=== PATIENT | female | born 1995 | race Hispanic/Latino ===

== ENCOUNTER 2016-10-13 07:02 | Inpatient (IN) | payer MEDICAID ==
[2016-10-13 07:36] VITALS: BMI 21.6
[2016-10-13] MEDS ORDERED: Morphine 4 mg/ml ISec IVP STA (07:47)
--- NOTE | 2016-10-13 07:56 | ED PDOC ---
Arrival/HPI - General Chief Complaint: Psychiatric Evaluation Time Seen by Provider: 10/13/16 07:35 Historian: Patient - History of Present Illness Narrative History of Present Illness (Text): 10/13/16 07:29 A 20 year old female, whose past medical history includes anxiety/depression, presents to the emergency department, accompanied by mother, complaining of feeling anxious and depressed. Patient reports she got into an argument with a friend and earlier today while talking to her mom she said "I feel like killing my self." Patient states she is afraid her friend is going to try to get her fired from work and is scared. Mother says she does not believe the child is going to hurt herself and it is just a situational statement. Patient denies any fever, chest pain, shortness of breath, or any other medical complaints at this time. Patient denies any suicidal plan, homicidal ideation or other complaints. PMD: None Therapist: Junior Andre Time/Duration: Prior to Arrival Symptom Onset: Sudden Symptom Course: Unchanged Quality: Other Activities at Onset: Rest Context: Home Past Medical History - Provider Review Nursing Documentation Reviewed: Yes - Tetanus Immunization Tetanus Immunization: Unknown - Cardiac Hx Cardiac Disorders: No - Pulmonary Hx Respiratory Disorders: No - Neurological Hx Neurological Disorder: No - HEENT Hx HEENT Disorder: No - Renal Hx Renal Disorder: No - Endocrine/Metabolic Hx Endocrine Disorders: No - Hematological/Oncological Hx Blood Disorders: No - Integumentary Hx Dermatological Disorder: No - Musculoskeletal/Rheumatological Hx Musculoskeletal Disorders: No - Gastrointestinal Hx Gastrointestinal Disorders: No - Genitourinary/Gynecological Hx Genitourinary Disorders: No - Psychiatric Hx Psychophysiologic Disorder: Yes Hx Anxiety: Yes Hx Depression: No Hx Emotional Abuse: No Hx Physical Abuse: No Hx Substance Use: No - Suicidal Assessment Feels Threatened In Home Enviroment: No Family/Social History - Physician Review Nursing Documentation Reviewed: Yes Family/Social History: Unknown Family HX Smoking Status: Never Smoked Hx Alcohol Use: No Hx Substance Use: No Hx Substance Use Treatment: No Allergies/Home Meds Allergies/Adverse Reactions: Allergies Iodine and Iodide Containing Produc Allergy (Verified 10/13/16 07:43) ANGIOEDEMA oyster Allergy (Uncoded 10/13/16 07:43) RASH Home Medications: Home Meds Medication Instructions Recorded Confirmed No Known Home Med 10/13/16 10/13/16 Review of Systems - Physician Review All systems were reviewed & negative as marked: Yes - Review of Systems Constitutional: absent: Fevers Respiratory: absent: SOB Cardiovascular: absent: Chest Pain Psychiatric: Anxiety, Depression, Suicidal Ideation. absent: Other (suicidal plan or homcidal ideation) Physical Exam Vital Signs Reviewed: Yes Vital Signs Temp Pulse Resp BP Pulse Ox 10/13/16 11:18 74 18 125/68 100 10/13/16 07:36 98.2 F 62 18 125/76 98 Temperature: Afebrile Blood Pressure: Normal Pulse: Regular Respiratory Rate: Normal Appearance: Positive for: Well-Appearing, Non-Toxic, Comfortable Pain Distress: None Mental Status: Positive for: Alert and Oriented X 3 - Systems Exam Head: Present: Atraumatic, Normocephalic Pupils: Present: PERRL Extroacular Muscles: Present: EOMI Conjunctiva: Present: Normal Mouth: Present: Moist Mucous Membranes Neck: Present: Normal Range of Motion Respiratory/Chest: Present: Clear to Auscultation, Good Air Exchange. No: Respiratory Distress, Accessory Muscle Use Cardiovascular: Present: Regular Rate and Rhythm, Normal S1, S2. No: Murmurs Abdomen: Present: Normal Bowel Sounds. No: Tenderness, Distention, Peritoneal Signs Back: Present: Normal Inspection Upper Extremity: Present: Normal Inspection. No: Cyanosis, Edema Lower Extremity: Present: Normal Inspection. No: Edema Neurological: Present: GCS=15, CN II-XII Intact, Speech Normal Skin: Present: Warm, Dry, Normal Color. No: Rashes Psychiatric: Present: Alert, Oriented x 3, Normal Insight, Normal Concentration Medical Decision Making ED Course and Treatment: 10/13/16 07:39 Impression: A 20 year old female with a suicidal thought, anxiousness and depression. Differential Diagnosis include but are not limited to: anxiety/depression Plan: -- EKG -- Labs -- Urinalysis -- Reassess and disposition Progress Notes: PES called. 10/13/16 08:12 Patient medical cleared for PES evaluation. 10/13/16 10:16 PES worker came to evaluate the patient, who spoke with Dr. Pearce. Dr. Pearce agrees with the plan to admit the patient to behavioral health for depression. Results and plans discussed with the patient and patient's mother, who expressed understanding. Patient and mother given the opportunity to ask question, all questions were answered and there is agreement with the plan to be admitted to the hospital. - Lab Interpretations Lab Results: 10/13/16 07:45 10/13/16 07:45 Lab Results 10/13/16 09:15: Urine Opiates Screen Negative, Urine Methadone Screen Negative, Ur Barbiturates Screen Negative, Ur Phencyclidine Scrn Negative, Ur Amphetamines Screen Negative, U Benzodiazepines Scrn Negative, U Oth Cocaine Metabols Negative, U Cannabinoids Screen Negative 10/13/16 09:15: Urine Color Yellow, Urine Appearance Clear, Urine pH 6.0, Ur Specific [place] >= 1.030, Urine Protein Trace H, Urine Glucose (UA) Negative, Urine Ketones Negative, Urine Blood Negative, Urine Nitrate Negative, Urine Bilirubin Small H, Urine Urobilinogen 0.2, Ur Leukocyte Esterase Negative, Urine RBC Negative, Urine WBC 0 - 2, Ur Epithelial Cells 1 - 3, Urine Bacteria Trace 10/13/16 07:45: Alcohol, Quantitative < 10 10/13/16 07:45: Salicylates < 1 L, Acetaminophen < 10.0 L 10/13/16 07:45: Sodium 143, Potassium 3.8, Chloride 103, Carbon Dioxide 26, Anion Gap 18, BUN 19, Creatinine 0.7, Est GFR ( Amer) > 60, Est GFR (Non- Af Amer) > 60, Random Glucose 87, Calcium 9.9, Total Bilirubin 1.0, AST 21, ALT 37, Alkaline Phosphatase 50, Total Protein 8.7 H, Albumin 4.7, Globulin 3.9, Albumin/Globulin Ratio 1.2 10/13/16 07:45: WBC 5.8, RBC 4.46, Hgb 12.9, Hct 38.1, MCV 85.4, MCH 28.9, MCHC 33.9, RDW 13.3, Plt Count 282, MPV 9.5, Gran % 58.5, Lymph % (Auto) 30.4, [place] % (Auto) 8.5 H, Eos % (Auto) 1.7, Baso % (Auto) 0.9, Gran # 3.39, Lymph # 1.8, [place] # 0.5, Eos # 0.1, Baso # 0.05 I have reviewed the lab results: Yes - Medication Orders Current Medication Orders: Fluoxetine HCl (Prozac) 10 mg PO DAILY ELVIRA Last Admin: 10/13/16 14:24 Dose: 10 mg Hydroxyzine Pamoate (Vistaril) 25 mg PO Q8 PRN; Protocol PRN Reason: Anxiety Zaleplon (Sonata) 5 mg PO HS PRN PRN Reason: Insomnia - Scribe Statement The provider has reviewed the documentation as recorded by the Saadiaibe Magy Benitez Provider Scribe Attestation: All medical record entries made by the Saadiaibandrew were at my direction and personally dictated by me. I have reviewed the chart and agree that the record accurately reflects my personal performance of the history, physical exam, medical decision making, and the department course for this patient. I have also personally directed, reviewed, and agree with the discharge instructions and disposition. Disposition/Present on Arrival - Present on Arrival Any Indicators Present on Arrival: No History of DVT/PE: No History of Uncontrolled Diabetes: No Urinary Catheter: No History of Decub. Ulcer: No History Surgical Site Infection Following: None - Disposition Have Diagnosis and Disposition been Completed?: Yes Diagnosis: Depression Disposition: HOSPITALIZED Disposition Time: 10:16 Patient Plan: Admission Condition: FAIR
[2016-10-13 08:05] LABS: ADD MANUAL DIFF? NO
[2016-10-13 08:11] LABS: BASO # 0.05 [, K/mm3] (0.0-2.0); BASO % 0.9 % (0.0-3.0); EOS # 0.1 (0.0-0.7); EOS % 1.7 % (1.5-5.0); GRAN # 3.39 (1.4-6.5); GRAN % 58.5 % (50.0-68.0); HEMATOCRIT 38.1 % (36.0-48.0); LYMPH # 1.8 (1.2-3.4); LYMPH % 30.4 % (22.0-35.0); MEAN CELL VOLUME 85.4 fL (80.0-105.0); MEAN CORPUSCULAR HEMOGLOBIN 28.9 pg (25.0-35.0); MEAN CORPUSCULAR HGB CONC 33.9 g/dl (31.0-37.0); MEAN PLATELET VOLUME 9.5 fl (7.0-11.0); MONO # 0.5 (0.1-0.6); MONO % 8.5 % (1.0-6.0); PLATELET COUNT 282 [, 10^3/uL] (120.0-450.0); RED CELL DISTRIBUTION WIDTH 13.3 % (11.5-14.5); WHITE BLOOD COUNT 5.8 [, 10^3/ul] (4.5-11.0)
[2016-10-13 08:26] LABS: ALB/GLOB RATIO 1.2 (1.1-1.8); ALKALINE PHOSPHATASE 50 U/L (38-133); ALT/SGPT 37 U/L (7-56); AST/SGOT 21 U/L (15-39); BLOOD UREA NITROGEN 19 mg/dL (7-21); CALCIUM 9.9 mg/dL (8.4-10.5); CARBON DIOXIDE 26 mmol/L (21-33); CHLORIDE 103 mmol/L (98-107); GFR AFRICAN-AMERICAN > 60; GLUCOSE,RANDOM 87 mg/dL (70-110); POTASSIUM 3.8 mmol/L (3.6-5.0); SODIUM 143 mmol/L (132-148); TOTAL PROTEIN 8.7 g/dL (5.8-8.3)
[2016-10-13 09:34] LABS: URINE BILIRUBIN SMALL (NEGATIVE); URINE BLOOD NEGATIVE (NEGATIVE); URINE GLUCOSE (UA) NEGATIVE (NEGATIVE); URINE KETONE NEGATIVE (NEGATIVE); URINE LEUKOCYTE ESTERASE NEGATIVE Leu/uL (NEGATIVE); URINE PROTEIN TRACE mg/dL (<30 mg/dL); URINE UROBILINOGEN 0.2 E.U./dL (<1 E.U./dL)
[2016-10-13 09:35] LABS: URINE APPEARANCE CLEAR (CLEAR); URINE COLOR YELLOW (YELLOW)
[2016-10-13 09:48] LABS: URINE BACTERIA TRACE (NEG); URINE RBC NEGATIVE /hpf (0-2); URINE WBC 0 - 2 /hpf (0-6)
[2016-10-13 11:22] VITALS: O2SAT 100
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
[2016-10-13] MEDS ORDERED: Alum-Mag Hydrox-Simethicone Susp (30 mL) PO PRN (15:40)
[2016-10-13] MEDS ORDERED: Magnesium Hydroxide Susp 30 ml UD PO PRN (15:41)
[2016-10-14 08:00] LABS: CHOLESTEROL 135 mg/dL (130-200); GLUCOSE,FASTING 92 mg/dL (65-110)
[2016-10-14 08:13] LABS: FREE T4 1.19 ng/dL (0.78-2.19)
[2016-10-14 08:27] LABS: THYROID STIMULATING HORMONE 1.7 mIU/mL (0.46-4.68)
--- NOTE | 2016-10-14 12:59 | CON ---
DATE: 10/14/2016 HISTORY OF PRESENT ILLNESS: The patient is a 20-year-old sindy white girl who was brought in last t [place]. The patient states she was feeling very depressed and she had suicidal thoughts. She stated on e of her close friends blocked her from her social media where she thought she had some racial slurs against her and she also had some issues going on with another male coworker who passed some unfavora ble remarks on her that upset her really deeply and she became very depressed and thought she should kill herself, but actually did not have any plan to do it. So she told her mother who brought her to Emergency Room for help. 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 PAST MEDICAL HISTORY: She has a significant past medical history of depression only, otherwise she i s doing well. MEDICATIONS: She is not on any medicine at home. ALLERGIES: SHE IS ALLERGIC TO IODINE AND IODINE-CONTAINING PRODUCTS AND . SOCIAL HISTORY: She is single. Denies smoking or drinking. REVIEW OF SYSTEMS: Significant for feeling down, otherwise she has no other physical symptom. PHYSICAL EXAMINATION: GENERAL: She is awake and alert, communicative. VITAL SIGNS: She is afebrile, pulse 64, respirations 19, blood pressure 106/70. LUNGS: Bilateral good airflow, no rhonchi or crackle. HEART: S1, S2 audible. No murmur. ABDOMEN: Soft, nontender, no rebound, no guarding. NEUROLOGIC: She is awake and alert, communicative, ambulatory. LABORATORY DATA: WBC is 5.8, hemoglobin 12.9, hematocrit 38, platelet of 282. Chemistry: Sodium 14 3, potassium 3.8, chloride 103, CO2 26, BUN 19, creatinine 0.7, blood sugar of 87. LFTs are within n ormal limits. Thyroid within normal limits. Urinalysis is unremarkable. Urine drug screen is negative. ASSESSMENT: 1. Suicidal thoughts. 2. Occasional heartburn, but does not take any medicines. PLAN: The patient is medically stable. There is no further recommendation. Psych medication will b e adjusted by psychiatrist. Reginald Vargas MD cc: [id number] TT: 10/14/2016 12:58:48 Confirmation # [id number] Dictation # [id number] rn
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
--- NOTE | 2016-10-15 08:46 | PCM.PYCHPN ---
Psychiatric Progress Note - Psychiatric Progress Note Patient seen today, length of contact: 25 minutes Patient Chief Complaint: "I am definitely doing better" Problems Identified/Issues Discussed: I reviewed assessment and recent notes. Patient was interviewed at bedside. She remains calm, cooperative and well-oriented to circumstances. Reports that she is improving on the unit and has no complaints at this time. Depression persists however patient denies hopelessness or SI. Patient is feeling better and her affect is demonstrating good range and reactivity. She is tolerating medications and specifically denies any new discomfort or pain. She slept well last night without a prn. Her thought process is coherent and she isn't hallucinating. Delusions were not elicited. Nursing notes indicate that patient has been visible and cooperative on the unit. Appears depressed and anxious as well as a little isolative (though appears to be doing better this morning based on my interview). There were no behavioral issues overnight Diagnostic Results: MDD NICHOLE Medication Change: No ( ) Medical Record Reviewed: Yes (reports, labs, vitals, notes) Mental Status Examination - Cognitive Function Orientation: Person, Place, Situation, Time Memory: Intact Attention: Poor Concentration: Poor Association: WNL Fund of Knowledge: WNL - Mood Mood: Depressed ("I am definitely doing better"), Anxious - Affect Affect: Constricted (full range, reactive, pleasant) - Speech Speech: Appropriate - Formal Thought Process Formal Thought Process: No Impairment - Suicidal Ideation Suicidal Ideation: No - Homicidal Ideation Homicidal Ideation: No Goal/Treatment Plan - Goal/Treatment Plan Need for Continued Stay: Remain at risks for inpatient hospitalization, Severe depression anxiety, Discharge may exacerbated symptoms, Severe functional impairment Progress Toward Problem(s) and Goals/Treatment Plan: * c/w current tx and plan * No new weekend labs * Vitals reviewed and noted below: Selected Entries 10/14/16 10/14/16 06:35 16:18 Temperature 97.9 F Pulse Rate 64 68 Respiratory 19 Rate Blood Pressure 106/70 120/79 Estimated Date of D/C: 10/19/16 (will monitor closely)
[2016-10-15 08:48] LABS: FREE T4 1.11 ng/dL (0.78-2.19)
[2016-10-15 09:02] LABS: THYROID STIMULATING HORMONE 1.6 mIU/mL (0.46-4.68)
--- NOTE | 2016-10-16 09:30 | PCM.PYCHPN ---
Psychiatric Progress Note - Psychiatric Progress Note Patient seen today, length of contact: 25 minutes Patient Chief Complaint: "I am definitely doing better" Problems Identified/Issues Discussed: I reviewed recent notes and patient was interviewed at bedside. She remains calm, cooperative and well-oriented to circumstances. Reports that she is improving on the unit and has no complaints at this time. She continues to deny hopelessness or SI. Patient is feeling better and her affect is demonstrating good range and reactivity. She is tolerating medications and specifically denies any new discomfort or pain. She slept well last night without a prn. Her thought process is coherent and she isn't hallucinating. Delusions were not elicited. Nursing notes indicate that patient has been visible and cooperative on the unit There were no behavioral issues over the weekend. Diagnostic Results: MDD NICHOLE Medication Change: No ( ) Medical Record Reviewed: Yes (reports, labs, vitals, notes) Mental Status Examination - Cognitive Function Orientation: Person, Place, Situation, Time Memory: Intact Attention: Poor Concentration: Poor Association: WNL Fund of Knowledge: WNL - Mood Mood: Depressed ("I am definitely doing better"), Anxious - Affect Affect: Constricted (full range, reactive, pleasant) - Speech Speech: Appropriate - Formal Thought Process Formal Thought Process: No Impairment - Suicidal Ideation Suicidal Ideation: No - Homicidal Ideation Homicidal Ideation: No Goal/Treatment Plan - Goal/Treatment Plan Need for Continued Stay: Remain at risks for inpatient hospitalization, Severe depression anxiety, Discharge may exacerbated symptoms, Severe functional impairment Progress Toward Problem(s) and Goals/Treatment Plan: * c/w current tx and plan * Vitals reviewed and noted below: Selected Entries 10/15/16 10/16/16 06:42 07:42 Temperature 98.4 F 97.9 F Pulse Rate 58 L 59 L Respiratory 20 20 Rate Blood Pressure 102/58 L 109/69 * New weekend labs noted below: 10/15/16 08:16 Free T4 1.11 TSH 3rd Generation 1.60 Estimated Date of D/C: 10/19/16 (will monitor closely)
--- NOTE | 2016-10-17 12:59 | PN ---
DATE: 10/17/2016 The patient is a 20-year-old, seen and examined, sitting in dining room, seems to be much more alert, cooperative and participating. PHYSICAL EXAMINATION: VITAL SIGNS: She is afebrile, pulse 56, respirations 20, blood pressure 110/71. LUNGS: Bilateral good airflow, no rhonchi or crackle. HEART: S1, S2 audible. ABDOMEN: Soft, nontender, no rebound, no guarding. NEUROLOGIC: She is awake and alert, communicative, ambulatory. LABORATORY EXAMINATION: Her lipid profile is within normal limits. Thyroid profile is also within g ood range. ANCA is negative. ASSESSMENT: 1. Depression with suicidal thoughts. 2. Gastritis, intermittent. PLAN: The patient is clinically stable, no medical issue. Will sign off and follow up as needed. Reginald Vargas MD cc: [phone] TT: 10/17/2016 12:58:26 Confirmation # [id number] Dictation # [id number] en
--- NOTE | 2016-10-17 13:45 | PCM.PYCHPN ---
Psychiatric Progress Note - Psychiatric Progress Note Patient seen today, length of contact: 30 minutes Patient Chief Complaint: "I M doing little bit better, my mother is very supportive, I need to work on my self-esteem, I'm easily taken advantage from" Problems Identified/Issues Discussed: Suicide/ homicide prevention, past psychiatric h/o, current psychiatric symptoms , medical problems, risk/benefits and alternatives of medications, medications compliance, coping strategies, substance abuse h/o, relapse prevention, importance of follow up with psychiatrist and therapist, discharge plan. Medical Problems: patient does not have any major medical illnesses, was seen by medical team. Diagnostic Results: 10/13/16 07:45 10/13/16 07:45 Lab Results 10/14/16 07:00: Free T4 1.19, TSH 3rd Generation 1.70 10/14/16 07:00: Fasting Glucose 92, Triglycerides 71, Cholesterol 135, LDL Cholesterol Direct 76, HDL Cholesterol 42 10/13/16 11:00: Urine HCG, Qual Negative 10/13/16 09:15: Urine Opiates Screen Negative, Urine Methadone Screen Negative, Ur Barbiturates Screen Negative, Ur Phencyclidine Scrn Negative, Ur Amphetamines Screen Negative, U Benzodiazepines Scrn Negative, U Oth Cocaine Metabols Negative, U Cannabinoids Screen Negative 10/13/16 09:15: Urine Color Yellow, Urine Appearance Clear, Urine pH 6.0, Ur Specific [place] >= 1.030, Urine Protein Trace H, Urine Glucose (UA) Negative, Urine Ketones Negative, Urine Blood Negative, Urine Nitrate Negative, Urine Bilirubin Small H, Urine Urobilinogen 0.2, Ur Leukocyte Esterase Negative, Urine RBC Negative, Urine WBC 0 - 2, Ur Epithelial Cells 1 - 3, Urine Bacteria Trace 10/13/16 07:45: Alcohol, Quantitative < 10 10/13/16 07:45: Salicylates < 1 L, Acetaminophen < 10.0 L 10/13/16 07:45: Sodium 143, Potassium 3.8, Chloride 103, Carbon Dioxide 26, Anion Gap 18, BUN 19, Creatinine 0.7, Est GFR ( Amer) > 60, Est GFR (Non- Af Amer) > 60, Random Glucose 87, Calcium 9.9, Total Bilirubin 1.0, AST 21, ALT 37, Alkaline Phosphatase 50, Total Protein 8.7 H, Albumin 4.7, Globulin 3.9, Albumin/Globulin Ratio 1.2 10/13/16 07:45: WBC 5.8, RBC 4.46, Hgb 12.9, Hct 38.1, MCV 85.4, MCH 28.9, MCHC 33.9, RDW 13.3, Plt Count 282, MPV 9.5, Gran % 58.5, Lymph % (Auto) 30.4, [place] % (Auto) 8.5 H, Eos % (Auto) 1.7, Baso % (Auto) 0.9, Gran # 3.39, Lymph # 1.8, [place] # 0.5, Eos # 0.1, Baso # 0.05 Vital Signs Temp Pulse Resp BP Pulse Ox 10/14/16 06:35 97.9 F 64 19 106/70 10/13/16 17:33 80 20 123/84 10/13/16 11:18 74 18 125/68 100 10/13/16 07:36 98.2 F 62 18 125/76 98 Temp Pulse Resp BP Pulse Ox 97.9 F 56 L 20 110/71 100 10/17/16 07:34 10/17/16 07:34 10/17/16 07:34 10/17/16 07:34 10/13/16 11:18 DSM 5 Symptoms Update: Shortly patient is 20 years old female, with reported history of depression, anxiety, history of one psychiatric admission at age of 12 or 13 in [facility], history of suicidal attempts ( at the age of 13 patient tried to cut her wrist), patient was brought in by her mother for evaluation and stabilization of depressive symptoms, suicidal ideations, worsening of anxiety, inability to function, patient was noncompliant with the medications as well as follow-up appointments, patient needs further evaluation and stabilization, medication initiation and titration, medical attention. patient was seen today at the treatment meeting room, patient presented to have with ADLs, fear hygiene, appears to be anxious, but affect was more reactive, mood congruent.. atient reported over the weekend her mood was "little better" patient still feel anxious about going back to work, patient feels "easily intimidated", atient reported that her mother is very supportive, patient decided that she will go back to work and "I will not try to make friends with that two people, they are not good for me". 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 "I will be very formal with them, I will say "hello and good buy, I don't want to have any trouble with them". Patient denied hearing voices, denied seeing things, denied paranoid ideation, patient does not present to be psychotic Patient denied mind is racing, elevated mood, no manic symptoms were reported or elicited. emotional support and empathic listening provided. pt was Impression: MDD NICHOLE Medication Change: No ( ) Medical Record Reviewed: Yes (reports, labs, vitals, notes) Consults ordered or reviewed: medical consult appreciated Mental Status Examination - Cognitive Function Orientation: Person, Place, Situation, Time Memory: Intact Attention: Poor Concentration: Poor Association: WNL Fund of Knowledge: WNL - Mood Mood: Depressed ("I am definitely doing better"), Anxious - Affect Affect: Constricted (full range, reactive, pleasant) - Speech Speech: Appropriate - Formal Thought Process Formal Thought Process: No Impairment - Suicidal Ideation Suicidal Ideation: No - Homicidal Ideation Homicidal Ideation: No Goal/Treatment Plan - Goal/Treatment Plan Need for Continued Stay: Remain at risks for inpatient hospitalization, Severe depression anxiety, Discharge may exacerbated symptoms, Severe functional impairment Progress Toward Problem(s) and Goals/Treatment Plan: milieu, structure, supportive therapy Prozac will be increased to 30 mg daily for depression and anxiety Sonata 5 mg as needed for insomnia Vistaril 25 mg every 8 hours as needed for anxiety Collaterals from family Medical team evaluation ostrich farm worker evaluation We'll monitor closely. Estimated Date of D/C: 10/19/16 (will monitor closely)
[2016-10-18 06:53] VITALS: RESP 20
--- NOTE | 2016-10-18 15:37 | PCM.PYCHPN ---
Psychiatric Progress Note - Psychiatric Progress Note Patient seen today, length of contact: 30 minutes Patient Chief Complaint: "I am doing better, I will be able to face the stress..., I learned a lot from this admission". Problems Identified/Issues Discussed: Suicide/ homicide prevention, past psychiatric h/o, current psychiatric symptoms , medical problems, risk/benefits and alternatives of medications, medications compliance, coping strategies, substance abuse h/o, relapse prevention, importance of follow up with psychiatrist and therapist, discharge plan. Medical Problems: patient does not have any major medical illnesses, was seen by medical team. Diagnostic Results: 10/13/16 07:45 10/13/16 07:45 Lab Results 10/14/16 07:00: Free T4 1.19, TSH 3rd Generation 1.70 10/14/16 07:00: Fasting Glucose 92, Triglycerides 71, Cholesterol 135, LDL Cholesterol Direct 76, HDL Cholesterol 42 10/13/16 11:00: Urine HCG, Qual Negative 10/13/16 09:15: Urine Opiates Screen Negative, Urine Methadone Screen Negative, Ur Barbiturates Screen Negative, Ur Phencyclidine Scrn Negative, Ur Amphetamines Screen Negative, U Benzodiazepines Scrn Negative, U Oth Cocaine Metabols Negative, U Cannabinoids Screen Negative 10/13/16 09:15: Urine Color Yellow, Urine Appearance Clear, Urine pH 6.0, Ur Specific [place] >= 1.030, Urine Protein Trace H, Urine Glucose (UA) Negative, Urine Ketones Negative, Urine Blood Negative, Urine Nitrate Negative, Urine Bilirubin Small H, Urine Urobilinogen 0.2, Ur Leukocyte Esterase Negative, Urine RBC Negative, Urine WBC 0 - 2, Ur Epithelial Cells 1 - 3, Urine Bacteria Trace 10/13/16 07:45: Alcohol, Quantitative < 10 10/13/16 07:45: Salicylates < 1 L, Acetaminophen < 10.0 L 10/13/16 07:45: Sodium 143, Potassium 3.8, Chloride 103, Carbon Dioxide 26, Anion Gap 18, BUN 19, Creatinine 0.7, Est GFR ( Amer) > 60, Est GFR (Non- Af Amer) > 60, Random Glucose 87, Calcium 9.9, Total Bilirubin 1.0, AST 21, ALT 37, Alkaline Phosphatase 50, Total Protein 8.7 H, Albumin 4.7, Globulin 3.9, Albumin/Globulin Ratio 1.2 10/13/16 07:45: WBC 5.8, RBC 4.46, Hgb 12.9, Hct 38.1, MCV 85.4, MCH 28.9, MCHC 33.9, RDW 13.3, Plt Count 282, MPV 9.5, Gran % 58.5, Lymph % (Auto) 30.4, [place] % (Auto) 8.5 H, Eos % (Auto) 1.7, Baso % (Auto) 0.9, Gran # 3.39, Lymph # 1.8, [place] # 0.5, Eos # 0.1, Baso # 0.05 Vital Signs Temp Pulse Resp BP Pulse Ox 10/14/16 06:35 97.9 F 64 19 106/70 10/13/16 17:33 80 20 123/84 10/13/16 11:18 74 18 125/68 100 10/13/16 07:36 98.2 F 62 18 125/76 98 Temp Pulse Resp BP Pulse Ox 97.9 F 56 L 20 110/71 100 10/17/16 07:34 10/17/16 07:34 10/17/16 07:34 10/17/16 07:34 10/13/16 11:18 Temp Pulse Resp BP Pulse Ox 97.9 F 63 20 111/71 100 10/18/16 06:53 10/18/16 06:53 10/18/16 06:53 10/18/16 06:53 10/13/16 11:18 DSM 5 Symptoms Update: Shortly patient is 20 years old female, with reported history of depression, anxiety, history of one psychiatric admission at age of 12 or 13 in [facility], history of suicidal attempts ( at the age of 13 patient tried to cut her wrist), patient was brought in by her mother for evaluation and stabilization of depressive symptoms, suicidal ideations, worsening of anxiety, inability to function, patient was noncompliant with the medications as well as follow-up appointments, patient needs further evaluation and stabilization, medication initiation and titration, medical attention. patient was seen today at the TV room, patient presented to have with ADLs, fear hygiene, appears anxious, but said that she feels better, affect was more reactive, mood congruent.. patient tolerated medications well, no side effects observed or reported, patient reported that she is ready to be discharged tomorrow, patient has future oriented plans, patient wants to go back to work, was to go back to her school, patient said that she is ready to "face my problems", patient denied being depressed, denied thoughts of killing herself or others, patient also said "sometimes my mind is overreacting" referring to her statement at the time of admission that she wants to end up her life. Patient denied hearing voices, denied seeing things, denied paranoid ideation, patient does not present to be psychotic Patient denied mind is racing, elevated mood, no manic symptoms were reported or elicited. as per staff pt is visible in the unit, no behavioral problems. Impression: MDD NICHOLE Medication Change: Yes (increased yesterday) Medical Record Reviewed: Yes (reports, labs, vitals, notes) Consults ordered or reviewed: medical consult appreciated Mental Status Examination - Cognitive Function Orientation: Person, Place, Situation, Time Memory: Intact Attention: Poor (some improvement) Concentration: Poor (some improvement) Association: WNL Fund of Knowledge: WNL - Mood Mood: Depressed ("I am definitely doing better"), Anxious - Affect Affect: Constricted (full range, reactive, pleasant) - Speech Speech: Appropriate - Formal Thought Process Formal Thought Process: No Impairment - Suicidal Ideation Suicidal Ideation: No - Homicidal Ideation Homicidal Ideation: No Goal/Treatment Plan - Goal/Treatment Plan Need for Continued Stay: Remain at risks for inpatient hospitalization, Severe depression anxiety, Discharge may exacerbated symptoms, Severe functional impairment Progress Toward Problem(s) and Goals/Treatment Plan: milieu, structure, supportive therapy Prozac 30 mg daily for depression and anxiety Sonata 5 mg as needed for insomnia Vistaril 25 mg every 8 hours as needed for anxiety Collaterals from family Medical team evaluation acetone recovery worker evaluation We'll monitor closely. patient deemed to be ready for discharge tomorrow. Estimated Date of D/C: 10/19/16 (will monitor closely)
[2016-10-19 07:27] VITALS: BP 112/74; PULSE 68; TEMP 97.7
--- NOTE | 2016-10-19 11:29 | PCM.PYCHDC ---
Mental Status Examination - Mental Status Examination Orientation: Person, Place, Situation, Time Memory: Intact Mood: Neutral Affect: Broad (and mood congruent) Speech: Appropriate Attention: WNL Concentration: WNL Association: WNL Fund of Knowledge: WNL Formal Thought Process: No Impairment Description of patient's judgement and insight: Pt has improved insight into mental and medical illness, pt was compliant with medications and unit rules and regulations, pt was going to groups, was calm, cooperative, socially appropriate, no behavioral incidents, no agitation, no aggression. Psychotic Thoughts and Behaviors: Pt denied v/a/t hallucinations, denied paranoid ideations, pt does not appear to be psychotic, and thought process is goal directed. Suicidal Ideation: No Current Homicidal Ideation?: No Plan: pt adamantly denied thoughts of harming self or others denied intent or plan. Discharge Summary - Discharge Note Reason for Hospitalization: patient was admitted for evaluation and stabilization of depressive symptoms, inability to function, passive suicidal ideation, no intent or plan to kill herself. Psychiatric History (includes Medical, Family, Personal Hx): see HPI Laboratory Data: 10/13/16 07:45 10/13/16 07:45 Lab Results 10/15/16 08:16: Free T4 1.11, TSH 3rd Generation 1.60 10/14/16 07:30: RPR Nonreactive 10/14/16 07:00: Free T4 1.19, TSH 3rd Generation 1.70 10/14/16 07:00: Fasting Glucose 92, Triglycerides 71, Cholesterol 135, LDL Cholesterol Direct 76, HDL Cholesterol 42 10/13/16 11:00: Urine HCG, Qual Negative 10/13/16 09:15: Urine Opiates Screen Negative, Urine Methadone Screen Negative, Ur Barbiturates Screen Negative, Ur Phencyclidine Scrn Negative, Ur Amphetamines Screen Negative, U Benzodiazepines Scrn Negative, U Oth Cocaine Metabols Negative, U Cannabinoids Screen Negative 10/13/16 09:15: Urine Color Yellow, Urine Appearance Clear, Urine pH 6.0, Ur Specific Clemons >= 1.030, Urine Protein Trace H, Urine Glucose (UA) Negative, Urine Ketones Negative, Urine Blood Negative, Urine Nitrate Negative, Urine Bilirubin Small H, Urine Urobilinogen 0.2, Ur Leukocyte Esterase Negative, Urine RBC Negative, Urine WBC 0 - 2, Ur Epithelial Cells 1 - 3, Urine Bacteria Trace 10/13/16 07:45: Alcohol, Quantitative < 10 10/13/16 07:45: Salicylates < 1 L, Acetaminophen < 10.0 L 10/13/16 07:45: Sodium 143, Potassium 3.8, Chloride 103, Carbon Dioxide 26, Anion Gap 18, BUN 19, Creatinine 0.7, Est GFR ( Amer) > 60, Est GFR (Non- Af Amer) > 60, Random Glucose 87, Calcium 9.9, Total Bilirubin 1.0, AST 21, ALT 37, Alkaline Phosphatase 50, Total Protein 8.7 H, Albumin 4.7, Globulin 3.9, Albumin/Globulin Ratio 1.2 10/13/16 07:45: WBC 5.8, RBC 4.46, Hgb 12.9, Hct 38.1, MCV 85.4, MCH 28.9, MCHC 33.9, RDW 13.3, Plt Count 282, MPV 9.5, Gran % 58.5, Lymph % (Auto) 30.4, Shasta % (Auto) 8.5 H, Eos % (Auto) 1.7, Baso % (Auto) 0.9, Gran # 3.39, Lymph # 1.8, Shasta # 0.5, Eos # 0.1, Baso # 0.05 Vital Signs Temp Pulse Resp BP Pulse Ox 10/19/16 07:26 97.7 F 68 20 112/74 10/18/16 15:53 84 132/89 10/18/16 06:53 97.9 F 63 20 111/71 10/17/16 17:00 97.3 F L 81 17 137/82 10/17/16 16:27 96 H 156/128 H 10/17/16 07:34 97.9 F 56 L 20 110/71 10/16/16 21:16 140/91 H 10/16/16 07:42 97.9 F 59 L 20 109/69 10/15/16 06:42 98.4 F 58 L 20 102/58 L 10/14/16 16:18 68 120/79 10/14/16 06:35 97.9 F 64 19 106/70 10/13/16 17:33 80 20 123/84 10/13/16 11:18 74 18 125/68 100 10/13/16 07:36 98.2 F 62 18 125/76 98 Consultations:: List each consultation separately and include: 1. Reason for request. 2. Findings. 3. Follow-up Consultations: medical consult appreciated see notes for more detailed information Summary of Hospital Course include:: 1. Description of specific treatment plan utilized for patients during their course of treatmen. 2. Summarize the time- course for resolution of acute symptoms and/or regressed behaviors. 3. Describe issues identified and worked on during hospitalization. 4. Describe medication utilized. 5. Describe medical problems identified and treated. 6. Reassessment of suicide risk Summary of Hospital Course: Shortly patient is 20 years old female, with reported history of depression, anxiety, history of one psychiatric admission at age of 12 or 13 in [facility]3], history of suicidal attempts ( at the age of 13 patient tried to cut her wrist), patient was brought in by her mother for evaluation and stabilization of depressive symptoms, suicidal ideations, worsening of anxiety, inability to function, patient was noncompliant with the medications as well as follow-up appointments, patient needs further evaluation and stabilization, medication initiation and titration, medical attention. initially patient was seen at the treatment team room, patient presented to have with ADLs, fair hygiene. Patient presented to be Pleasant, corporative, anxious. Patient reported since July she started to feel more depressed, feeling unease, patient reported that she was not able to function, patient started to have suicidal thoughts and that is why she brought herself to the hospital. patient denied any intent, or plan to kill herself. Patient reported that her depressive symptoms are related to the conflict with a friend who has "bipolar disorder, she has history of aggression, and I'm afraid of her".patient also reported difficulties to fall asleep to stay asleep, difficult to concentrate and stay focused. Patient also reported to feel anxious, scared, worried about her life, work, friends, was not able to function. Patient denied hearing voices, denied seeing things, denied paranoid ideation, patient does not present to be psychotic Patient denied mind is racing, elevated mood, no manic symptoms were reported or elicited. Patient denied using drugs, denied using alcohol, denied smoking. Past psychiatric history: Patient has 1 psychiatric admission at the age of 12 or 13 status post suicidal attempt, patient tried to cut her wrist, needed to be on medications, including Zoloft Prozac, Xanax Klonopin.Patient reported that she was not taking medications "for a while". Patient reported on Zoloft"I was emotionally numb, I didn't like that feeling". Patient reported that she was tolerating Prozac well, willing to resume that medication. Patient also reported no history of medical illnesses, body reported to be prediabetes. Patient reported that her mother is very supportive, patient works. 10/13/16 07:45 10/13/16 07:45 Lab Results 10/13/16 11:00: Urine HCG, Qual Negative 10/13/16 09:15: Urine Opiates Screen Negative, Urine Methadone Screen Negative, Ur Barbiturates Screen Negative, Ur Phencyclidine Scrn Negative, Ur Amphetamines Screen Negative, U Benzodiazepines Scrn Negative, U Oth Cocaine Metabols Negative, U Cannabinoids Screen Negative 10/13/16 09:15: Urine Color Yellow, Urine Appearance Clear, Urine pH 6.0, Ur Specific Clemons >= 1.030, Urine Protein Trace H, Urine Glucose (UA) Negative, Urine Ketones Negative, Urine Blood Negative, Urine Nitrate Negative, Urine Bilirubin Small H, Urine Urobilinogen 0.2, Ur Leukocyte Esterase Negative, Urine RBC Negative, Urine WBC 0 - 2, Ur Epithelial Cells 1 - 3, Urine Bacteria Trace 10/13/16 07:45: Alcohol, Quantitative < 10 10/13/16 07:45: Salicylates < 1 L, Acetaminophen < 10.0 L 10/13/16 07:45: Sodium 143, Potassium 3.8, Chloride 103, Carbon Dioxide 26, Anion Gap 18, BUN 19, Creatinine 0.7, Est GFR ( Amer) > 60, Est GFR (Non- Af Amer) > 60, Random Glucose 87, Calcium 9.9, Total Bilirubin 1.0, AST 21, ALT 37, Alkaline Phosphatase 50, Total Protein 8.7 H, Albumin 4.7, Globulin 3.9, Albumin/Globulin Ratio 1.2 10/13/16 07:45: WBC 5.8, RBC 4.46, Hgb 12.9, Hct 38.1, MCV 85.4, MCH 28.9, MCHC 33.9, RDW 13.3, Plt Count 282, MPV 9.5, Gran % 58.5, Lymph % (Auto) 30.4, Shasta % (Auto) 8.5 H, Eos % (Auto) 1.7, Baso % (Auto) 0.9, Gran # 3.39, Lymph # 1.8, Shasta # 0.5, Eos # 0.1, Baso # 0.05 Vital Signs Temp Pulse Resp BP Pulse Ox 10/13/16 11:18 74 18 125/68 100 10/13/16 07:36 98.2 F 62 18 125/76 98 over the course of this hospitalization patient was stabilized on Prozac which was increased slowly to 30 mg a day, patient did not require any benzodiazepines for anxiety, did not require to have medication for sleep. patient tolerated medications well, no side effects observed or reported, aims 0 , no EPS. Over the course of this hospitalization pt was attending groups, pt also had medication management, had therapeutic milieu. Overall pt improved significantly, pt's affect became brighter, pt was less depressed, has realistic future oriented plans "I want to go back to work, I don 't want to be involved in any problems, will be very selective with friends", pt also does not appear to be psychotic, or anxious, pt was socially appropriate , no behavioral issues, pts insight improved as well and soon pt deemed to be ready for discharge. this scenario writer had prolonged conversation with patient and mother on 10/28/2016. Mother reported that patient is doing "much better", confirmed the conflict with her friend, patient mother feels that patient is ready to be discharged, was appreciated, treatment plan and discharge plan was discussed in details. Patient mother is willing to accept patient back home. - Diagnosis (1) MDD (major depressive disorder) Current Visit: Yes Status: Acute (2) NICHOLE (generalized anxiety disorder) Current Visit: Yes Status: Acute (3) Adjustment disorder with mixed anxiety and depressed mood Current Visit: Yes Status: Acute - Final Diagnosis (DSM 5) Condition upon Discharge: FAIR Disposition: HOME/ ROUTINE Follow-up Treatment Plan: At the time of the discharge pt denied been depressed, denied thoughts of harming self or others, denied psychotic symptoms, and pt does not appeared to be psychotic, denied been anxious, was considered to pose no threat to self or others, will be following up with outpatient psychiatrist and therapist, information about follow up appointment, time and address provided to the pt, it is patient responsibility to follow up with outpatient clinic, PMD as well as specialists (see SW note for more detailed information). In case pt will need to obtain results of studies pending at discharge pt was provided with contact information of Psychiatric Inpatient unit [phone] as well as Medical Record Department [phone]. patient does not have addictive problems, is not smoking, not using any drugs. pt was provided with prescriptions for all of medications (please see medication reconciliation form) Pt was educated about safety plan in case of worsening of symptoms or in case of suicidal or homicidal ideation call 911 or go to the nearest ER, also was educated to take meds as prescribed and stay away from drugs, pt verbalized understanding. Prescriptions/Medication Reconciliation: FLUoxetine [Prozac] 10 mg PO DAILY #14 cap FLUoxetine [Fluoxetine HCl] 20 mg PO DAILY #14 cap - Smoking Cessation Smoking Cessation Medication prescribed: No Reason for not providing: pt does not smoke
== END 2016-10-19 12:48 | disposition home or self-care (01) | DRG 430 ==
LOC: ED 07:02 → ERH 10:16 → PSYC 12:09
PROVIDERS: ADMIT Psychiatry & Neurology Psychiatry; ATTEND Psychiatry & Neurology Psychiatry
DX: F33.2 Major depressive disorder, recurrent severe without psychotic features (principal); F41.1 Generalized anxiety disorder; F43.23 Adjustment disorder with mixed anxiety and depressed mood; K29.70 Gastritis, unspecified, without bleeding; Z91.14 Patient's other noncompliance with medication regimen